=== PATIENT | female | born 1990 | race Caucasian/White ===

== ENCOUNTER 2021-07-05 08:20 | Outpatient (REF) | payer MEDICAID, SELFPAY | END 2021-07-05 08:21 | disposition home or self-care (01) | LOC: HO.HOSX 08:20 | PROVIDERS: Visit Provider Physician Assistant | DX: Z13.89 Encounter for screening for other disorder (principal) ==

== ENCOUNTER 2021-08-03 10:06 | Outpatient (REF) | payer MEDICAID, SELFPAY ==
--- NOTE | ~2021-08-03 | XR_ITS ---
EXAMINATION: XR AP STANDING VIEW BOTH KNEES. XR KNEE, LEFT. CLINICAL INFORMATION: Left knee pain COMPARISON: None TECHNIQUE: AP standing view both knees. Lateral and sunrise views of the left knee. FINDINGS: No joint space narrowing. Bone mineralization is normal. No fracture. No joint effusion. XR/XR knee standing BI IMPRESSION: Normal left knee.
--- NOTE | ~2021-08-03 | XR_ITS ---
EXAMINATION: XR AP STANDING VIEW BOTH KNEES. XR KNEE, LEFT. CLINICAL INFORMATION: Left knee pain COMPARISON: None TECHNIQUE: AP standing view both knees. Lateral and sunrise views of the left knee. FINDINGS: No joint space narrowing. Bone mineralization is normal. No fracture. No joint effusion. XR/XR knee LT 2V IMPRESSION: Normal left knee.
== END 2021-08-03 10:07 | disposition home or self-care (01) ==
LOC: HO.HOSX 10:06
PROVIDERS: PCP Internal Medicine; Visit Provider Physician Assistant
DX: S83.207A Unspecified tear of unspecified meniscus, current injury, left knee, initial encounter (principal); S83.512A Sprain of anterior cruciate ligament of left knee, initial encounter
CPT/HCPCS: 73560; 73565; 99202

== ENCOUNTER → 2021-08-05 09:00 | Outpatient (BNVA) | payer MEDICAID, SELFPAY | PROVIDERS: PCP Internal Medicine; Visit Provider Orthopaedic Surgery | DX: S83.512D Sprain of anterior cruciate ligament of left knee, subsequent encounter (principal); S83.222D Peripheral tear of medial meniscus, current injury, left knee, subsequent encounter | CPT/HCPCS: 99212 ==

== ENCOUNTER 2021-12-22 08:24 | Day surgery (SDC) | payer MEDICAID, SELFPAY ==
[2021-12-16 15:35] VITALS: BMI 34.3
--- NOTE | 2021-12-21 09:53 | HO.ANESPROP2 ---
Documented by User: Mya Ontiveros NP 12/21/21 09:54 HPI - Anesthesia Eval Consult details Narrative: 31yo F for Left ACL Reconstruction with Allograft PMFSH Active Problems Active Problems: All Active Problems (Updated 08/03/21 @ 10:36 by Claudia Shearer) Tears of meniscus and ACL of left knee (Acute) Past Medical History Medical History (Updated 12/22/21 @ 08:43 by Caryn Braxton RN) TMJ (dislocation of temporomandibular joint) Social History Social History Patient Tobacco Use Status: Never used Tobacco Are you DNR?: No Advance Directives: No Advance Directives Information Provided: Yes Current occupational status: student 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 Meds Allergies Allergy/AdvReac Type Severity Reaction Status Date / Time No Known Allergies Allergy Verified 12/16/21 10:33 Exam Exam Date and Time: December 21, 2021 0953 Height,Weight and Vital Signs: Height 5 ft 4 in Weight 90.718 kg Assessment and Plan Assessment Anesthesia Assessment: Chart Reviewed Documented by User: Fernando Diop MD 12/22/21 14:50 PMFSH Past Medical History Medical History (Updated 12/22/21 @ 08:43 by Caryn Braxton RN) TMJ (dislocation of temporomandibular joint) Functional capacity: independent ambulation Family History Family history of problems with anesthesia: No Surgical History History of Problems with Anesthesia: No Social History Social History Patient Tobacco Use Status: Never used Tobacco Are you DNR?: No Advance Directives: No Advance Directives Information Provided: Yes Current occupational status: student 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 Meds Allergies Allergy/AdvReac Type Severity Reaction Status Date / Time No Known Allergies Allergy Verified 12/16/21 10:33 Exam Airway Mallampati Class: III TM Dist: >3cm Neck ROM: Full Loose/Missing/Broken Teeth: Yes (Fillings ) Heart: S1,S2 Lungs: b/l breath sounds Assessment and Plan Assessment Anesthesia Assessment: Anesthesia Plan Discussed Final Anesthetic Review Family History of Problems with Anesthesia: No History of Problems with Anesthesia: No NPO: Yes ASA Class: II Final Preanesthetic Review: Meds/Allgs Chart Reviewed, Consent Obtained/Reviewed and Anes Risks/Benef Reviewed Patient Risk: Intermediate Procedure Risk: Intermediate Anesthetic Plan Anesthetic Plan: GA Disposition: Standard PACU
[2021-12-22] VITALS (10 sets, daily range): BP systolic 113–128; BP diastolic 70–81; PULSE 66–87; RESP 16–21; TEMP 36.2–36.4; O2SAT 94–99; BMI 34.3
[2021-12-22 08:45] LABS: UPreg QC Valid YES; Urine Pregnancy NEGATIVE (NEGATIVE)
[2021-12-22] MEDS: Lactated Ringers 1,000 ML 100 ML IVCONT (09:09)
[2021-12-22] MEDS: Acetaminophen 325 MG TABLET 650 MG PO (09:10)
--- NOTE | 2021-12-22 10:19 | MHC.SHP ---
Pre-Procedural Eval Section A Date of Service: 12/22/21 The patient is an INPATIENT: No Changes since office visit: Yes Patient answered all questions; No Cold of Flu in the past 2 weeks, No New Medical Problems and No Changes in Medication The History & Physical has been completed within 30 days and I have reviewed it.: Yes Section B Chief Complaint: Tear of articular cartilage of left knee, current, Allergies: Allergies Allergy/AdvReac Type Severity Reaction Status Date / Time No Known Allergies Allergy Verified 12/16/21 10:33 Plan I have reviewed the history and physical and performed a pertinent physical examination on my patient. No changes have occurred unless specified.
--- NOTE | 2021-12-22 12:12 | PM.OP ---
Brief Operative Note Date of Service: 12/22/21 Pre-op diagnosis: Left knee ACL tear Post-op diagnosis: same Procedure: Left ACL reconstruction with allograft Implants: RTI Allograft Surgeon: Kelby Wyatt MD Anesthesia: GETA and local Was an Motion Picture Scene Builder used for this Procedure?: Yes Motion Picture Scene Builder: Divina Gamboa Estimated blood loss (mL): 20 IV fluids (mL): 1,000 Pathology: none sent Condition: stable Disposition: PACU
--- NOTE | 2021-12-22 14:24 | W.PM.OPN ---
Operative Note Operative Note Date of Service: 12/22/21 Narrative: Date of Service: 12/22/21 Pre-op diagnosis: Left knee ACL tear Post-op diagnosis: same Procedure: Left ACL reconstruction with allograft Implants: RTI Allograft Surgeon: Kelby Wyatt MD Anesthesia: GETA and local Was an Preservative Filler Machine Operator used for this Procedure?: Yes Preservative Filler Machine Operator: Divina Gamboa Estimated blood loss (mL): 20 IV fluids (mL): 1,000 Pathology: none sent Condition: stable Disposition: PACU Procedure in detail: Patient was brought to the operating room placed supine on the arthroscopic table and prepped and draped in standard sterile fashion. A time-out was called to identify proper site proper procedure proper surgeon and IV antibiotics per weight were administered. Under anesthesia she had a + pivot shift. The allograft was opened. I began by exsanguinating the limb and insufflating tourniquet to 300 mm Hg. Then made a standard anterolateral stab incision. The knee was insufflated with water and 30 degree arthroscope was placed. There was a normal patella and trochlear cartilage and the suprapatellar pouch and the gutters were clean. I descended into the medial compartment where I made my far medial portal under direct visualization. There was a normal medial compartment with normal meniscus. I then examined the notch where there was a + empty wall sign and an intact PCL. THe lateral compartment was also normal. I debrided the stump and acl footprint and performed a limited notchplasty. I then, through a far AM portal and a 7mm behind the back guide, drilled a k-wire through the LFC with the knee in hyper-flexion. I measured the tunnel as a 30 and then after sizing the allograft on the back table drilled a 24 mm tunnel with an 10 mm reamer. The final 5 mm was drilled with a 4.5 reamer. I then pulled a suture through the femoral tunnel and turned my attention to the tibia. I did examine the femoral tunnel and was satisfied with the posterior wall and its location low and medial at the anatomic footprint. I placed my tibial drill guide in 55 deg and, through a anteromedial inc just lateral to the tibial tubercle placed a k-wire into the notch exiting just medial to the anterior horn insertion of the lateral meniscus. I then over-reamed with an 10 reamer. I cleaned the tunnel up with a shaver. On the back table the graft had been coubled, whip-stitched and trialed through a 10mm sizer. THe femoral button was attached to the looped end. I placed the graft on 15lbs of tension for 10 minutes. I then passed the allograft through the tibial tunnel and femoral tunnel and flipped the button. I cycled the knee about 10-15 cycles and then placed a tibial interference screw with the knee in hyper-extension while holding the graft taught. Once I was satisfied that the interference screw was buried I examined the ACL. The repair was stable and the ACL was not impinging and there was a negative pivot shift. The Denita's had a firm endpoint. I then removed all instrumentation and closed the incisions with nylon.Local anesthetic was administered. Patient was then placed in sterile dressings and a hinged knee brace. She was then extubated brought recovery room stable condition. There were no known complications.
== END 2021-12-22 14:20 | disposition home or self-care (01) ==
PROVIDERS: Nurse Practitioner; PCP Internal Medicine; Visit Provider Orthopaedic Surgery
PROC: (CPT 27428; principal; 2021-12-22 09:50)
DX: S83.512A Sprain of anterior cruciate ligament of left knee, initial encounter (principal); X58.XXXA Exposure to other specified factors, initial encounter; Y93.9 Activity, unspecified; Y92.9 Unspecified place or not applicable; Y99.8 Other external cause status; M26.609 Unspecified temporomandibular joint disorder, unspecified side
CPT/HCPCS: 29888; 81025; C1713; C1769; J0171; J0690; J1100; J1170; J2250; J2405; J2550; J2795; J3010

== ENCOUNTER 2022-01-27 12:02 | Outpatient (REF) | payer MEDICAID, SELFPAY | END 2022-01-27 12:03 | disposition home or self-care (01) | LOC: HO.HOSX 12:02 | PROVIDERS: Visit Provider Physician Assistant | DX: Z13.89 Encounter for screening for other disorder (principal) ==

== ENCOUNTER 2023-08-30 09:45 | Outpatient (REF) | payer MEDICAID, SELFPAY ==
[2023-08-30 14:17] LABS: MANUAL DIFF FLAG NO
[2023-08-30 14:28] LABS: Basophils Percent Auto 0.4 % (0-2); Eosinophils Absolute Auto 0.3 X10*3/uL (0.0-0.4); Eosinophils Percent Auto 3.8 % (0-4); Hematocrit 40.7 % (37.0-47.0); Hemoglobin 13.6 g/dl (12.0-16.0); Imm Gran Abs Auto 0.02 X10*3/uL (0.00-0.03); Imm Gran Pct Auto 0.3 % (0.0-0.4); Lymphocytes Absolute Auto 2.5 X10*3/uL (1.2-4.9); Lymphocytes Percent Auto 32.5 % (20-40); Mean Corpuscular HGB Conc 33.4 g/dl (31.0-35.0); Mean Corpuscular Hemoglobin 29.9 pg (27.0-33.0); Mean Corpuscular Volume 89.5 fL (80.0-98.0); Mean Platelet Volume 10.6 fL (9.4-12.3); Monocytes Absolute Auto 0.5 X10*3/uL (0.1-1.2); Monocytes Percent Auto 6.4 % (2-11); Neutrophils Absolute Auto 4.3 x10*3/uL (2.0-8.3); Neutrophils Percent Auto 56.6 % (45-73); Platelet Count 296 X10*3/uL (160-400); Red Blood Count 4.55 X10*6/uL (4.20-5.50); Red Cell Distribution Width 12.5 % (11.0-16.0); White Blood Count 7.6 X10*3/uL (4.8-10.8)
[2023-08-30 14:38] LABS: Estimated Average Glucose 148 mg/dL; Hemoglobin A1c % 6.8 % (<6.0)
[2023-08-30 15:07] LABS: Alanine Aminotransferase 24 U/L (0-31); Albumin Level 4.4 g/dL (3.5-5.0); Alkaline Phosphatase 63 U/L (39-117); Anion Gap 14 (12-20); Aspartate Amino Transferase 17 U/L (5-31); Bilirubin Total 0.4 mg/dL (0.0-1.0); Blood Urea Nitrogen 10 mg/dL (9-16); Calcium 9.7 mg/dL (8.4-10.2); Carbon Dioxide 21 mmol/L (22-29); Chloride 107 mmol/L (96-108); Cholesterol 278 mg/dL (<200); Estimated Glomerular Filt Rate > 60; Glucose Random 139 mg/dL (60-115); HDL Cholesterol 49 mg/dL (>40); LDL Cholesterol Calculated 197 mg/dL (<100); Sodium 138 mmol/L (135-145); Total Protein 7.5 g/dL (6.5-8.0); Triglycerides 162 mg/dL (<150)
[2023-08-30 15:25] LABS: TSH reflex Free T4 0.73 uIU/mL (0.32-4.0)
== END 2023-08-30 09:46 | disposition home or self-care (01) ==
LOC: HO.CHCLDS 09:45
PROVIDERS: Visit Provider Internal Medicine
DX: E66.09 Other obesity due to excess calories (principal); Z68.35 Body mass index [BMI] 35.0-35.9, adult
CPT/HCPCS: 36415; 80053; 80061; 83036; 84443; 85025